=== PATIENT | male | born 1970 | race Caucasian/White ===

== ENCOUNTER 2021-07-21 08:07 | Emergency (ER) | payer OTHER ==
[~2021-07-21] VITALS: Ht 177.8 cm; Wt 108.4 kg
[2021-07-21 08:45] LABS: BASO % 0.3 % (0.0-1.0); EOS % 0.5 % (0.0-3.0); HEMATOCRIT 47.8 % (42.0-52.0); HEMOGLOBIN 15.9 g/dl (13.5-17.5); LYMPH # 1.7 10^3/uL (1.5-5.0); LYMPH % 27.4 % (24.0-44.0); MEAN CORPUSCULAR HEMOGLOBIN 31.3 pg (27.0-33.0); MEAN CORPUSCULAR HGB CONC 33.3 g/dl (32.0-36.5); MEAN CORPUSCULAR VOLUME 94.1 fl (80.0-96.0); MONO # 0.8 10^3/uL (0.0-0.8); MONO % 12.5 % (2.0-8.0); NEUTROPHILS # 3.7 10^3/uL (1.5-8.5); PLATELET COUNT, AUTOMATED 231 10^3/uL (150-450); RED BLOOD COUNT 5.08 10^6/uL (4.30-6.10); WHITE BLOOD COUNT 6.3 10^3/uL (4.0-10.0)
[2021-07-21 09:04] LABS: INR 0.9; PROTHROMBIN TIME 12.6 SECONDS (12.7-14.5)
[2021-07-21] MEDS ORDERED: ASPIRIN 81 MG CHEW TABLET PO ONE (09:10)
[2021-07-21 09:14] LABS: BLOOD UREA NITROGEN 16 MG/DL (7-18); CALCIUM LEVEL 9.4 MG/DL (8.5-10.1); CARBON DIOXIDE LEVEL 25 MEQ/L (21-32); CHLORIDE LEVEL 106 MEQ/L (98-107); CREATININE FOR GFR 0.92 MG/DL (0.70-1.30); GLOMERULAR FILTRATION RATE > 60.0 (>56); GLUCOSE, FASTING 165 MG/DL (70-100); POTASSIUM SERUM 4.2 MEQ/L (3.5-5.1); SODIUM LEVEL 139 MEQ/L (136-145)
[2021-07-21 09:17] LABS: MB/CK RELATIVE INDEX 0.62 (< OR =4)
[2021-07-21] MEDS ORDERED: LISI2.5T9 PO (09:17)
[2021-07-21] MEDS ORDERED: METO1TAB87 PO (09:17)
[2021-07-21] MEDS ORDERED: OMEP10CASR PO (09:17)
[2021-07-21 09:22] LABS: PARTIAL THROMBOPLASTIN TIME 27.8 SECONDS (25.9-37.0)
[2021-07-21 09:30] LABS: ALBUMIN 3.7 GM/DL (3.2-5.2); ALT/SGPT 44 U/L (12-78); BILIRUBIN,DIRECT 0.2 MG/DL (0.0-0.2); BILIRUBIN,TOTAL 0.5 MG/DL (0.2-1.0); LIPASE 72 U/L (73-393); TOTAL PROTEIN 7.5 GM/DL (6.4-8.2)
[2021-07-21] MEDS ORDERED: METO1TAB7 (10:12)
[2021-07-21] MEDS ORDERED: ATOR1TAB19 (10:12)
[2021-07-21] MEDS ORDERED: ALLO100T (10:12)
[2021-07-21] MEDS ORDERED: OMEP40CA5 (10:12)
[2021-07-21] MEDS ORDERED: LISI20TA33 (10:12)
[2021-07-21 10:14] LABS: RSV AMPLIFICATION NEGATIVE (NEGATIVE)
[2021-07-21] MEDS ORDERED: HEPARIN DRIP 25,000 UNITS in IV 1 EA IV SCH (12:25)
[2021-07-21] MEDS ORDERED: HEPARIN SOD (PORCINE) 5000UNITS/ML 1ML VIAL/SYRINGE IV ONE (12:25)
[2021-07-21 13:47] VITALS: BP 178/94
== END 2021-07-21 13:50 | disposition short-term general hospital (02) ==
LOC: M ED 08:07
DX: I20.0 Unstable angina (principal); I10 Essential (primary) hypertension; E78.5 Hyperlipidemia, unspecified; K21.9 Gastro-esophageal reflux disease without esophagitis; M10.9 Gout, unspecified; Z79.899 Other long term (current) drug therapy
CPT/HCPCS: 71045; 80048; 80076; 82550; 82553; 83690; 84484; 85025; 85610; 85730; 87631; 93005; 93041; 94760; 96365; 99285; J1644